=== PATIENT | male | born 1970 | race African-American/Black ===

== ENCOUNTER 2017-05-01 10:33 | Emergency (ER) | payer SELFPAY ==
[~2017-05-01] VITALS: Ht 188 cm; Wt 95.0 kg
[2017-05-01 12:04] LABS: CLARITY URINE CLEAR (CLEAR); COLOR URINE YELLOW (YELLOW); GLUCOSE URINE NEGATIVE (NEGATIVE); KETONES URINE TRACE (NEGATIVE); LEUKOCYTE ESTERASE URINE NEGATIVE (NEGATIVE); NITRITE URINE NEGATIVE (NEGATIVE); OCCULT BLOOD URINE 2+ (NEGATIVE); PH URINE 5.5 (4.5-8.0); PROTEIN URINE NEGATIVE (NEGATIVE); SPECIFIC GRAVITY URINE 1.022 (1.005-1.030)
[2017-05-01 14:09] VITALS: BP 108/69
== END 2017-05-01 15:47 | disposition home or self-care (01) ==
LOC: ER 10:33
DX: R31.9 Hematuria, unspecified (principal); F17.210 Nicotine dependence, cigarettes, uncomplicated
CPT/HCPCS: 81001; 99283; Z7610